=== PATIENT | male | born 1955 | race Caucasian/White ===

== ENCOUNTER 2018-03-06 12:46 | Emergency (ER) | payer SELFPAY ==
[~2018-03-06] VITALS: Ht 152.4 cm; Wt 61.7 kg
[2018-03-06 12:50] VITALS: BP 173/116
--- NOTE | 2018-03-06 12:54 | NUR ---
PT AMBULATES TO BED 9
--- NOTE | 2018-03-06 13:00 | NUR ---
63 YO M TO ER W/C/O BLOOD IN URINE. PT STATE PARINIL PAIN, BILATERAL FLANK PAIN. PAIN 7/10. AAOX4, LS CLEAR. ABD SOFT AND NON TENDER. BP ELEVATED, PT DENIES HX OF HTN. PT STATES CLOTS AND HEMARIURIA STARTED LAST NIGHT. ER MD JUNIOR AWARE. WILL CONTINUE TO MONITOR.
--- NOTE | 2018-03-06 13:04 | NUR ---
Patient being evaluated by physician at bedside.
[2018-03-06] MEDS ORDERED: cloNIDine 0.1 MG TAB PO ONE (13:05)
[2018-03-06] MEDS ORDERED: LEVOFLOXACIN 500 MG TAB PO ONE (13:05)
[2018-03-06 13:41] LABS: BILIRUBIN,URINE NEGATIVE (NEGATIVE); BLOOD, URINE LARGE (NEGATIVE); LEUKOCYTE ESTERASE ,URINE NEGATIVE (NEGATIVE); NITRITE, URINE NEGATIVE (NEGATIVE); PH,URINE 6.5 (5.0-9.0); UGLUCOSE NEGATIVE (NEGATIVE)
[2018-03-06 13:42] LABS: APPEARANCE,URINE CLOUDY (CLEAR); COLOR,URINE RED (YELLOW)
[2018-03-06 13:43] LABS: RBC,URINE >100 /HPF (0-5); WBC,URINE 0-5 (RARE) /HPF (0-5)
[2018-03-06 13:45] LABS: BASOPHILS % (AUTO) 0.4 % (0.0-2.0); EOSINOPHILS % (AUTO) 0.2 % (0.0-4.0); HEMATOCRIT 42.8 % (36-52); HEMOGLOBIN 14.8 g/dL (12.0-18.0); LYMPHOCYTES # (AUTO) 1.4 K/uL (2.0-11.5); LYMPHOCYTES % (AUTO) 19.6 % (20.5-51.1); MEAN CORPUSCULAR HEMOGLOBIN 31 pg (27-31); MEAN CORPUSCULAR HGB CONC 35 g/dL (33-37); MEAN CORPUSCULAR VOLUME 89.8 fL (80-94); MONOCYTES # (AUTO) 0.4 K/uL (0.8-1.0); MONOCYTES % (AUTO) 5.3 % (1.7-9.3); NEUTROPHILS # (AUTO) 5.4 K/uL (1.8-7.7); NEUTROPHILS % (AUTO) 74.5 % (42.2-75.2); PLATELET COUNT (AUTO) 284 K/uL (140-450); RED BLOOD CELL COUNT(AUTO) 4.76 MIL/uL (4.20-6.10); RED CELL DISTRIBUTION WIDTH 12.9 % (11.6-13.7); WHITE BLOOD COUNT (AUTO) 7.2 K/uL (4.8-10.8)
[2018-03-06 14:00] LABS: CARBON DIOXIDE 28.8 mmol/L (21-32); CREATININE 0.7 mg/dL (0.7-1.3); POTASSIUM 3.8 mmol/L (3.5-5.1)
[2018-03-06 14:06] LABS: ALBUMIN 4.5 g/dL (3.4-5.0); TOTAL BILIRUBIN 0.8 mg/dL (0.0-1.0)
--- NOTE | 2018-03-06 14:32 | NUR ---
PT RESTING, APPEARENTLY ASLEEP, RR EVEN AND UNLABORED
[2018-03-06 14:48] VITALS: BP 112/68
--- NOTE | 2018-03-06 14:48 | NUR ---
PTS B/P IS 112/68 PULSE IS 85. NO S/S OF DISTRESS NOTED
--- NOTE | 2018-03-06 14:48 | NUR ---
Patient discharged with v/s stable. Written and verbal after care instructions given and explained. Patient alert, oriented and verbalized understanding of instructions. Ambulatory with steady gait. All questions addressed prior to discharge. ID band removed. Patient advised to follow up with PMD. Rx of LEVAQUIN given. Patient educated on indication of medication including possible reaction and side effects. Opportunity to ask questions provided and answered.
[2018-03-07 06:43] LABS: PSA FREE 0.99 ng/mL
== END 2018-03-06 14:48 | disposition home or self-care (01) ==
LOC: MED 12:46
DX: N41.9 Inflammatory disease of prostate, unspecified (principal); R03.0 Elevated blood-pressure reading, without diagnosis of hypertension
CPT/HCPCS: 36415; 80053; 81001; 82150; 83690; 84153; 84154; 85025; 99285